=== PATIENT | male | born 1995 ===

== ENCOUNTER 2024-04-01 22:17 | Emergency (ER) | payer MEDICAID, SELFPAY ==
[2024-04-01 22:36] VITALS: BP 122/62; PULSE 89; RESP 16; TEMP 36.7; O2SAT 98; BMI 21.5
[2024-04-01 23:05] LABS: Hematocrit 43.4 % (42.0-52.0); Mean Corpuscular HGB Conc 34.6 g/dl (31.0-36.0); Mean Corpuscular Hemoglobin 27.8 pg (27.0-33.0); Mean Corpuscular Volume 80.5 fL (80.0-98.0); Mean Platelet Volume 10.3 fL (9.4-12.4); Platelet Count 363 X10*3/uL (160-400); Red Blood Count 5.39 X10*6/uL (4.60-5.80); Red Cell Distribution Width 13.3 % (11.0-16.0); White Blood Count 9.2 X10*3/uL (4.8-10.8)
[2024-04-01 23:30] LABS: Anion Gap 13 (12-20); Blood Urea Nitrogen 9 mg/dL (9-16); Calcium 8.7 mg/dL (8.4-10.2); Carbon Dioxide 29 mmol/L (22-29); Chloride 107 mmol/L (96-108); Creatinine Clr Calc Pharmacy 110.5; Estimated Glomerular Filt Rate > 60; Ethanol 325 mg/dL; Glucose Random 109 mg/dL (60-115); Potassium 3.6 mmol/L (3.3-5.1); Sodium 145 mmol/L (135-145)
--- NOTE | 2024-04-02 00:15 | ED.ALCOHOL ---
HPI - Alcohol General Chief Complaint: ETOH/Substance Use Stated Complaint: alcohol detox Time Seen by Provider: 04/02/24 00:08 Source: patient Mode of arrival: ambulatory Limitations: no limitations History of Present Illness ED Provider: HPI narrative: Patient alcoholic for long time drinks [employer] had about 3 sleeve today so go and was sober for 2 years feels depressed requesting to go to detox but not sure Related Data Allergies Allergy/AdvReac Type Severity Reaction Status Date / Time No Known Allergies Allergy Verified 04/01/24 22:36 Review of Systems Review of Systems: Yes all other systems are reviewed and are negative [facility] Past Medical History Medical History (Updated 04/02/24 @ 07:18 by Alexandre Turk MD) Alcoholic Social History Social History Alcohol intake: current Smoked in Last 30 Days: No Use of substances other than those prescribed or required for medical reasons: Refusing to respond Advance Directives: No Advance Directives Information Provided: No Do you have a plan to hurt others: No Plan Physical Exam ED Vital Signs: Vital Signs - 24 hr 04/01/24 22:36 04/02/24 00:19 04/02/24 03:45 Temperature 98.0 F 97.8 F Pulse Rate 89 98 62 Respiratory Rate 16 16 14 Blood Pressure 122/62 126/72 Pulse Oximetry 98 97 96 Oxygen Delivery Method Room Air Room Air Room Air 04/02/24 05:42 Temperature 97.9 F Pulse Rate 60 Respiratory Rate 16 Blood Pressure 130/62 Pulse Oximetry 96 Oxygen Delivery Method Room Air BMI result Body Mass Index 21.5 Appearance: Alert. Oriented X3. No acute distress. anxious , etoh+ Eyes: PERRLA, No Nystagmus ENT: Pharynx normal. Oral Mucosa moist Neck: Normal inspection. Neck supple. CVS: Normal heart rate and rhythm. Pulses normal. Respiratory: No respiratory distress. Equal air entry bilateral, no wheezing/rales/rhonchi Abdomen: Soft and gastric tenderness Bowel sounds are present, no mass palpable, no CVA tenderness Skin: Skin warm and dry. Normal skin color. Normal skin turgor. Extremities: No lower extremity edema. No calf tenderness psych: no si/hi anxiuos Neuro: Oriented X 3. No motor deficit. No sensory deficit.No cerebellar signs , cranial nerves II-XII intact Medical Decision Making Medical Decision Making [facility] Narrative: Patient alcoholic requesting detox will get care team for evaluation and placement Lab Data [facility] Lab Attestation statement: I reviewed the patient's lab results. 04/01/24 23:00 04/01/24 23:00 Labs: Lab Results 04/01/24 Range/Units 23:00 WBC 9.2 (4.8-10.8) X10*3/uL RBC 5.39 (4.60-5.80) X10*6/uL Hgb 15.0 (14.0-18.0) g/dl Hct 43.4 (42.0-52.0) % MCV 80.5 (80.0-98.0) fL MCH 27.8 (27.0-33.0) pg MCHC 34.6 (31.0-36.0) g/dl RDW 13.3 (11.0-16.0) % Plt Count 363 (160-400) X10*3/uL MPV 10.3 (9.4-12.4) fL Absolute Nucleated RBC 0.000 (0.0-0.012) X10*3/uL Nucleated RBC % (auto) 0.0 (0.0-0.2) /100WBC Sodium 145 (135-145) mmol/L Potassium 3.6 (3.3-5.1) mmol/L Chloride 107 (96-108) mmol/L Carbon Dioxide 29 (22-29) mmol/L Anion Gap 13 (12-20) BUN 9 (9-16) mg/dL Creatinine 0.94 (0.5-1.4) mg/dL Estim Creat Clear Calc 110.5 Estimated GFR > 60 Random Glucose 109 (60-115) mg/dL Calcium 8.7 (8.4-10.2) mg/dL Magnesium 2.1 (1.6-2.6) mg/dL Total Bilirubin 0.3 (0.0-1.0) mg/dL Direct Bilirubin 0.1 (0.0-0.5) mg/dL AST 34 (5-37) U/L ALT 20 (0-40) U/L Alkaline Phosphatase 94 (39-117) U/L Total Protein 7.9 (6.5-8.0) g/dL Albumin 4.1 (3.5-5.0) g/dL Lipase 30 (8-78) U/L Ethyl Alcohol 325 H* mg/dL Medications Administered Discontinued Medications Generic Name Dose Route Start Last Admin Trade Name Freq PRN Reason Stop Dose Admin Sodium Chloride 1,000 mls @ 999 mls/hr 04/02/24 01:00 04/02/24 02:25 Ns IV 04/02/24 02:00 Infused .Q1H1M WENDY Infusion Lorazepam 2 mg 04/02/24 01:53 04/02/24 01:57 Lorazepam 2 Mg/Ml Vial IVPUSH 04/02/24 01:54 2 mg ONCE ONE Administration Ondansetron HCl 4 mg 04/02/24 00:50 04/02/24 01:14 Ondansetron Hcl 4 Mg/2 Ml Vial IVPUSH 04/02/24 00:51 4 mg ONCE ONE Administration Discharge Plan Discharge Clinical Impression: Alcoholic intoxication Patient Disposition: Still a Patient Print Language: Taiwanese
[2024-04-02 00:19] VITALS: BP 126/72; PULSE 98; RESP 16; O2SAT 97
[2024-04-02 00:42] LABS: Alanine Aminotransferase 20 U/L (0-40); Albumin Level 4.1 g/dL (3.5-5.0); Aspartate Amino Transferase 34 U/L (5-37); Bilirubin Direct 0.1 mg/dL (0.0-0.5); Bilirubin Total 0.3 mg/dL (0.0-1.0); Lipase 30 U/L (8-78); Magnesium 2.1 mg/dL (1.6-2.6); Total Protein 7.9 g/dL (6.5-8.0)
[2024-04-02 01:09] LABS: Alkaline Phosphatase 94 U/L (39-117)
[2024-04-02] MEDS: 0.9 % Sodium Chloride 1,000 ML 999 ML IV (01:14)
[2024-04-02] MEDS: ondansetron HCL 4 MG/2 ML VIAL IVPUSH (01:14)
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
[2024-04-02] MEDS: LORazepam 2 MG/ML VIAL IVPUSH (01:57)
--- NOTE | 2024-04-02 02:02 | PC.NURSE ---
medicated per kaur, pt give a bekah magdalena.
--- NOTE | 2024-04-02 03:06 | MHC.EDTECH ---
Patient extremely rude to staff (provider RN, registration and myself). Major snot seem to want to be here. Swearing at all staff
--- NOTE | 2024-04-02 03:34 | PC.NURSE ---
IV fluids completed, patient pulled out IV line.
[2024-04-02 03:45] VITALS: PULSE 62; RESP 14; TEMP 36.6; O2SAT 96
--- NOTE | 2024-04-02 04:40 | PC.NURSE ---
pt removed Iv, pt is sleeping at this time, no sign of distress.
[2024-04-02 05:42] VITALS: BP 130/62; PULSE 60; RESP 16; TEMP 36.6; O2SAT 96
--- NOTE | 2024-04-02 08:10 | MHC.EDTECH ---
pt refuses vital signs o be checked, stating he is not awake.
--- NOTE | 2024-04-02 09:09 | MHC.RECOVRN ---
Met with pt in [place] to discuss ongoing and problematic alcohol use. Pt reported drinking about 50 nips of whiskey the last 3 days. Denies hx of withdrawal seizures. Denies SI/HI (no ideation, plan, or intent) and denies AH/VH. Is interested in ATS - wants referrals to be sent for detox. Provided with pt a urine sample cup. Need utox results to initiate referral process. ATS referrals to be sent once utox results are available.
[2024-04-02 09:49] LABS: Amphetamine Screen Urine Not Detected (Not Detect); Barbiturates, Urine Not Detected (Not Detect); Benzodiazepines Screen Urine Not Detected (Not Detect); Buprenorphine Scr Not Detected (Not Detect); Cannabinoid Screen Urine Not Detected (Not Detect); Cocaine Screen Urine Not Detected (Not Detect); Fentanyl, urine Not Detected (Not Detect); Methadone Screen, Urine Not Detected (Not Detect); Opiate Screen Urine Not Detected (Not Detect); Oxycodone Screen Urine Not Detected (Not Detect); Phencyclidine Screen Urine Not Detected (Not Detect)
[2024-04-02 10:46] VITALS: BP 108/73; PULSE 84; RESP 18; TEMP 36.8; O2SAT 99
--- NOTE | 2024-04-02 12:45 | MHC.RECOVRN ---
ATS (detox) referrals have been sent to the following facilities: 1. [facility] [place] 2. [facility] [place] 3. [facility] [place] 4. [facility] - [place] 5. [facility] - [place] 6. [facility] - [place] 7. [facility] - [place] 8. [facility] - [place] Will follow up via phone call shortly for update. Since pt is currently uninsured, only facilities with open [facility] beds will consider patient.
--- NOTE | 2024-04-02 14:17 | MHC.RECOVRN ---
Pt accepted at [facility] in [place] for detox. He is expected to be there by 5pm. Girlfriend to mixing picker tender pt's meds + clothes from home and bring them to the hospital. When girlfriend is back she is to confirm that she is able to drive patient to [place]. Alternatively pt will be Lyfted to [place] by the CARE team.
[2024-04-02] MEDS: LORazepam 1 MG TABLET 2 MG PO (15:23)
[2024-04-02 15:26] VITALS: BP 108/73; PULSE 84; RESP 18; TEMP 36.8; O2SAT 99
== END 2024-04-02 15:27 | disposition home or self-care (01) ==
PROVIDERS: Internal Medicine; Emergency Provider Emergency Medicine
DX: F10.129 Alcohol abuse with intoxication, unspecified (principal); R11.0 Nausea; Y90.8 Blood alcohol level of 240 mg/100 ml or more; Z51.81 Encounter for therapeutic drug level monitoring; Z79.899 Other long term (current) drug therapy
CPT/HCPCS: 36415; 80048; 80076; 80307; 83690; 83735; 85027; 96361; 96374; 96375; 99285; J2060; J2405; S9485